=== PATIENT | female | born 1950 | race Caucasian/White ===

== ENCOUNTER 2023-12-01 16:21 | Emergency (ER) | payer MEDICARE ==
[~2023-12-01] VITALS: Ht 170.1 cm; Wt 47.6 kg
[2023-12-01] MEDS ORDERED: SINEMET 10-1001 EACH PO (16:33)
[2023-12-01] MEDS ORDERED: POTASSIUM99 M7 PO (16:34)
[2023-12-01] MEDS ORDERED: DAILY VALUE1 EACH PO (16:34)
[2023-12-01 17:05] LABS: BASO % 0.8 % (0.0-1.0); EOS % 0.4 % (1.0-4.0); HEMATOCRIT 37.8 % (37.0-47.0); LYMPH # 1.3 10*3/uL (1.3-4.4); LYMPH % 24.5 % (27.0-41.0); MEAN CELL VOLUME 93.1 fl (81.0-99.0); MEAN CORPUSCULAR HGB 31.8 pg (27.0-31.0); MEAN CORPUSCULAR HGB CONC 34.1 g/dl (33.0-37.0); MEAN PLATELET VOLUME 10.2 fl (9.6-12.3); MONO # 0.4 10*3/uL (0.1-1.0); MONO % 7.4 % (3.0-9.0); NEUT # 3.4 10*3/uL (2.3-7.9); NEUT % 66.5 % (47.0-73.0); PLATELET COUNT AUTOMATED 119 10*3/uL (130-400); RED BLOOD COUNT 4.06 10*6/uL (4.10-5.10); RED CELL DISTRI WIDTH 12.6 % (0-14.5); WHITE BLOOD COUNT 5.1 10*3/uL (4.8-10.8)
[2023-12-01 17:26] LABS: ALKALINE PHOSPHATASE 83 U/L (46-116); BUN 28 mg/dl (9-23); CHLORIDE 105 mmol/L (98-107); POTASSIUM 3.1 mmol/L (3.4-5.1); TOTAL PROTEIN 6.6 gm/dL (6.0-8.0)
[2023-12-01 17:28] LABS: SGPT/ALT < 7 U/L (5-49)
[2023-12-01 17:42] LABS: ACT PARTIAL THROMBO TIME 23.5 SECONDS (20.0-32.1)
[2023-12-01] MEDS ORDERED: POTASSIUM CHLORIDE 20 MEQ TAB PO ONE (18:25)
[2023-12-01] MEDS ORDERED: POTASSIUM CHLO20 ME3 PO (20:24)
== END 2023-12-01 20:50 | disposition home or self-care (01) ==
LOC: ED 16:21
PROVIDERS: Internal Medicine
DX: R44.1 Visual hallucinations (principal); E87.6 Hypokalemia; R10.2 Pelvic and perineal pain

== ENCOUNTER → 2024-01-02 | Outpatient (CLI) | payer MEDICARE ==
[~2024-01-02] MED LIST: ASPIRIN ADULT L81 M2 PO; DAILY VALUE1 EACH PO; HYDROCODONE-AC1 EAC1 PO; IRON325 M1 PO; POTASSIUM CHLO20 ME3 PO; POTASSIUM99 M7 PO; SINEMET 10-1001 EACH PO; VITAMIN B-1250 MCG PO; VITAMIN D350 MCG PO
== END | disposition home or self-care (01) ==
LOC: ORTHO 00:47
PROVIDERS: ATTEND Orthopaedic Surgery
DX: S72.012D Unspecified intracapsular fracture of left femur, subsequent encounter for closed fracture with routine healing (principal); M16.12 Unilateral primary osteoarthritis, left hip; X58.XXXD Exposure to other specified factors, subsequent encounter

== ENCOUNTER → 2024-02-13 | Outpatient (CLI) | payer MEDICARE | END | disposition home or self-care (01) | LOC: ORTHO 04:43 | PROVIDERS: ATTEND Orthopaedic Surgery | DX: S72.012D Unspecified intracapsular fracture of left femur, subsequent encounter for closed fracture with routine healing (principal); X58.XXXD Exposure to other specified factors, subsequent encounter ==